=== PATIENT | female | born 1995 | race Caucasian/White ===

== ENCOUNTER 2022-04-21 10:13 | Emergency (ER) | payer OTHER ==
[~2022-04-21] VITALS: Ht 152.4 cm; Wt 47.6 kg
[2022-04-21] MEDS ORDERED: METRONIDAZOLE500 MG PO (16:59)
[2022-04-21] MEDS ORDERED: CIPRO500 MG PO (16:59)
[2022-04-21] MEDS ORDERED: PEPCID AC20 MG PO (16:59)
[2022-04-21] MEDS ORDERED: INTESTINEX680 M1 PO (16:59)
== END 2022-04-21 17:20 ==
LOC: ER 10:13
DX: K52.9 Noninfective gastroenteritis and colitis, unspecified (principal); A04.9 Bacterial intestinal infection, unspecified; Z88.8 Allergy status to other drugs, medicaments and biological substances

== ENCOUNTER 2022-09-14 07:45 | Emergency (ER) | payer OTHER ==
[~2022-09-14] VITALS: Ht 157.5 cm; Wt 46.7 kg
[~2022-09-14 07:45] MED LIST: CIPRO500 MG PO; INTESTINEX680 M1 PO; METRONIDAZOLE500 MG PO; PEPCID AC20 MG; PEPCID AC20 MG PO
[2022-09-14] MEDS ORDERED: DICLOFENAC SODI75 MG PO (10:35)
== END 2022-09-14 11:07 | disposition home or self-care (01) ==
LOC: ER 07:45
DX: S93.492A Sprain of other ligament of left ankle, initial encounter (principal); S83.8X2A Sprain of other specified parts of left knee, initial encounter; W10.8XXA Fall (on) (from) other stairs and steps, initial encounter; Y93.89 Activity, other specified; Y92.098 Other place in other non-institutional residence as the place of occurrence of the external cause; Y99.8 Other external cause status; Z88.8 Allergy status to other drugs, medicaments and biological substances

== ENCOUNTER 2022-11-23 14:42 | Outpatient (CLI) | payer OTHER ==
[~2022-11-23 14:42] MED LIST changes: +DICLOFENAC SODI75 MG PO
== END 2022-11-23 14:44 | disposition home or self-care (01) ==
LOC: LAB 14:42
PROVIDERS: ATTEND Obstetrics & Gynecology
DX: N30.00 Acute cystitis without hematuria (principal)

== ENCOUNTER 2022-12-22 09:01 | Outpatient (CLI) | payer OTHER | END 2022-12-22 09:05 | disposition home or self-care (01) | LOC: LAB 09:01 | PROVIDERS: ATTEND Orthopaedic Surgery | DX: M85.9 Disorder of bone density and structure, unspecified (principal); E83.42 Hypomagnesemia; E56.1 Deficiency of vitamin K ==